=== PATIENT | male | born 1955 | race Caucasian/White ===

== ENCOUNTER → 2019-05-04 | Outpatient (CLI) | payer MEDICARE, OTHER ==
--- NOTE | 2019-05-04 07:33 | US ---
EXAMINATION TYPE: US duplex aorta DATE OF EXAM: 05/04/2019 COMPARISON: NONE CLINICAL HISTORY: Z13.6 Screening for AAA. EXAM MEASUREMENTS: Abdominal Aorta: Proximal: gassed out Mid: 2.2cm longitudinal Distal: 2.0cm Transverse Bifurcation: Right DENAE = 1.3cm Transverse; Left DENAE = 1.2cm Transverse Proximal aorta is gassed out. Ectatic appearance to aorta with intimal wall thickening noted througho ut aorta and into common iliac arteries. Atherosclerosis is seen throughout the aorta. IMPRESSION: Somewhat ectatic aorta in the mid and distal portions with atherosclerosis, however there is no evidence of aneurysmal dilatation in the visualized abdominal aorta.
== END | disposition home or self-care (01) ==
LOC: RADUSWWP 06:48
PROVIDERS: ATTEND Family Medicine
DX: Z13.6 Encounter for screening for cardiovascular disorders (principal); I77.811 Abdominal aortic ectasia; I70.0 Atherosclerosis of aorta
CPT/HCPCS: 93979

== ENCOUNTER 2020-05-23 10:17 | Day surgery (SDC) | payer MEDICARE, OTHER ==
[2020-05-21 11:52] VITALS: BMI 28.1
[~2020-05-23 10:17] MED LIST: LACTATED RINGERS 1,000 ML IV SCH
[2020-05-23 10:31] VITALS: RESP 18; TEMP 98.3
[2020-05-23] MEDS ORDERED: LACTATED RINGERS 1,000 ML IV ONE (10:31)
[2020-05-23] MEDS ORDERED: LIDOCAINE 1% (10MG/ML) FOR IV START INTRADERMA ONE (10:31)
[2020-05-23] MEDS ORDERED: PROPOFOL 10 MG/ML 20 ML VIAL IV ONE (11:25)
--- NOTE | 2020-05-23 11:38 | P.PCN ---
Date of Procedure: 05/23/20 Procedure(s) Performed: BRIEF HISTORY: Patient is a 65-year-old pleasant white male scheduled for an elective colonoscopy as a part of screening for colorectal neoplasia. His last colonoscopy was 10 years ago. PROCEDURE PERFORMED: Colonoscopy. PREOPERATIVE DIAGNOSIS: Screening for colon cancer. IV sedation per Anesthesia. PROCEDURE: After informed consent was obtained, the patient, was brought into the endoscopy unit. IV sedation was administered by Anesthesia under continuous monitoring. Digital rectal examination was normal. Initially the Olympus CF-160 flexible video colonoscope was then inserted in the rectum, gradually advanced into the cecum without any difficulty. Careful examination was performed as the scope was gradually being withdrawn. Ileocecal valve and the appendiceal orifice were visualized and appeared normal. Prep was excellent. Mucosa of the cecum, ascending colon, transverse colon, descending colon, sigmoid colon, and rectum appeared normal. Retroflexion was performed in the rectum and no lesions were seen. The patient tolerated the procedure well. IMPRESSION: Normal-appearing colon from rectum to cecum with no evidence of colorectal neoplasia . RECOMMENDATIONS: Findings of this examination were discussed with the patient as well as his family. He was advised to have a repeat screening colonoscopy in 10 years.
[2020-05-23 11:59] VITALS: BP 119/79; PULSE 61
== END 2020-05-23 12:30 | disposition home or self-care (01) ==
LOC: ORWHC2ENDO 10:17
PROVIDERS: ATTEND Internal Medicine Gastroenterology
DX: Z12.11 Encounter for screening for malignant neoplasm of colon (principal); E78.5 Hyperlipidemia, unspecified; N40.0 Benign prostatic hyperplasia without lower urinary tract symptoms; E07.9 Disorder of thyroid, unspecified; Z79.82 Long term (current) use of aspirin; Z79.890 Hormone replacement therapy; Z79.1 Long term (current) use of non-steroidal anti-inflammatories (NSAID); Z79.899 Other long term (current) drug therapy; Z90.49 Acquired absence of other specified parts of digestive tract; Z98.890 Other specified postprocedural states
CPT/HCPCS: J2704; G0121

== ENCOUNTER → 2021-06-12 | Outpatient (CLI) | payer MEDICARE, OTHER ==
--- NOTE | 2021-06-12 11:12 | US ---
EXAMINATION TYPE: US duplex aorta DATE OF EXAM: 06/12/2021 COMPARISON: 05/04/2019 CLINICAL HISTORY: 66-year-old male Z13.6 Encounter for screening for cardiovascular. TECHNIQUE: Multiple sonographic images of the abdominal aorta are obtained. FINDINGS: EXAM MEASUREMENTS: Abdominal Aorta: Proximal: 2.0 x 1.5 cm Mid: 1.6 x 1.6 cm. Distal: 1.4 x 1.3 cm. Bifurcation: Right common iliac artery 1.2 x 1.2 cm. Left common iliac artery 1.2 x 0.9 cm. Mild atherosclerotic irregularity is present in the mid to lower abdominal aorta. IMPRESSION: No sonographic evidence for abdominal aortic ectasia or aneurysm.
== END | disposition home or self-care (01) ==
LOC: RADUSWWP 07:01
PROVIDERS: ATTEND Family Medicine
DX: Z13.6 Encounter for screening for cardiovascular disorders (principal)
CPT/HCPCS: 93979

== ENCOUNTER 2021-12-19 10:15 | Day surgery (SDC) | payer MEDICARE, OTHER ==
[2021-12-17 11:59] VITALS: BMI 28.1
[~2021-12-19 10:15] MED LIST changes: +ACETAMINOPHEN TAB 500 MG TAB PO PRN; +HEPARIN SODIUM,PORCINE/PF 5,000 UNIT/0.5 ML SYRINGE SQ PRN; +HYDROmorphone 0.5 MG/0.5 ML SYRINGE IVP PRN; +LIDOCAINE 1% (10MG/ML) FOR IV START INTRADERMA PRN; +ONDANSETRON 4 MG/2 ML VIAL IVP ONE; +ONDANSETRON 4 MG/2 ML VIAL IVP PRN
--- NOTE | 2021-12-19 10:48 | P.GSHP ---
History of Present Illness H&P Date: 12/19/21 Chief Complaint: Recurrent right inguinal hernia 66-year-old male with history of numerous inguinal hernias in the past. He has had the right side repaired once as an and the left side repaired 4 separate times he believes. Here today for elective repair recurrent right inguinal hernia. Describes a painful bulge in that location. Past Medical History Past Medical History: Hyperlipidemia, Thyroid Disorder Additional Past Medical History / Comment(s): BPH History of Any Multi-Drug Resistant Organisms: None Reported Past Surgical History: Appendectomy, Hernia Repair, Orthopedic Surgery Additional Past Surgical History / Comment(s): RIGHT SHOULDER SURG., MULTIPLE RIGHT AND LEFT INGUINAL HERNIA REPAIRS Past Anesthesia/Blood Transfusion Reactions: No Reported Reaction Past Psychological History: No Psychological Hx Reported Smoking Status: Former smoker Past Alcohol Use History: Daily Additional Past Alcohol Use History / Comment(s): SMOKED APPROX 20 YRS, 1 PPD. DRINKS 1 GLASS WINE DAILY Past Drug Use History: None Reported - Past Family History Mother Family Medical History: Cancer Additional Family Medical History / Comment(s): BREAST Father Family Medical History: Cancer Additional Family Medical History / Comment(s): PROSTATE CANCER Brother(s) Family Medical History: Cancer Additional Family Medical History / Comment(s): THROAT & PROSTATE CANCER Medications and Allergies Home Medications Medication Instructions Recorded Confirmed Type Aspirin 325 mg PO HS 05/21/20 12/17/21 History Atorvastatin [Lipitor] 40 mg PO HS 05/21/20 12/17/21 History Bimatoprost [Lumigan .01% Ophth 1 drop BOTH EYES HS 05/21/20 12/17/21 History Soln] Levothyroxine Sodium 112 mcg PO DAILY 05/21/20 12/17/21 History Tamsulosin [Flomax] 0.4 mg PO PC-SUPPER 05/21/20 12/17/21 History Allergies Allergy/AdvReac Type Severity Reaction Status Date / Time No Known Allergies Allergy Verified 12/17/21 11:54 Surgical - Exam Vital Signs Temp Pulse Resp BP Pulse Ox 98.8 F 83 16 137/85 97 12/19/21 10:31 12/19/21 10:31 12/19/21 10:31 12/19/21 10:31 12/19/21 10:31 Physical exam: General: Well-developed, well-nourished HEENT: Normocephalic, sclerae nonicteric Abdomen: Nontender, nondistended Extremities: No edema Neuro: Alert and oriented Assessment and Plan (1) Recurrent right inguinal hernia Narrative/Plan: 66-year-old male with recurrent right inguinal hernia. We'll proceed with laparoscopic da Flaco assisted repair right inguinal recurrent hernia with mesh, possible open, possible bilateral. Risks of bleeding, infection, recurrence, bladder and bowel injury, numbness, nerve injury, conversion to an open procedure were discussed with the patient. The patient understands and wishes to proceed. Current Visit: Yes Status: Acute Code(s): K40.91 - UNILATERAL INGUINAL HERNIA, W/O OBST OR GANGRENE, RECURRENT SNOMED Code(s): 852747870
[2021-12-19 10:56] LABS: Glucose,Whole Blood 85 mg/dL (75-99)
[2021-12-19] MEDS ORDERED: ePHEDrine 50 MG/ML 1 ML VIAL ONE (12:57)
[2021-12-19] MEDS ORDERED: SUCCINYLCHOLINE CHLORIDE 100 MG/5 ML SYR IV ONE (12:57)
[2021-12-19] MEDS ORDERED: LIDOCAINE 2% INJ 20 MG/ML (2 ML VIAL) ONE (12:57)
[2021-12-19] MEDS ORDERED: ROCURONIUM 10 MG/ML (5 ML VIAL) IV ONE (12:57)
[2021-12-19] MEDS ORDERED: PROPOFOL 10 MG/ML 20 ML VIAL IV ONE (12:57)
[2021-12-19] MEDS ORDERED: HYDROmorphone (PF) 1 MG/ML ONE (12:57)
[2021-12-19] MEDS ORDERED: PHENYLEPHRINE-0.9% NACL SYG 1,000 MCG/10 ML SYRINGE ONE (12:57)
[2021-12-19] MEDS ORDERED: MIDAZOLAM 2 MG/2 ML VIAL ONE (12:57)
[2021-12-19] MEDS ORDERED: GLYCOPYRROLATE 0.2 MG/ML 2 ML VIAL ONE (12:57)
[2021-12-19] MEDS ORDERED: NEOSTIGMINE 1 MG/ML 10 ML VIAL ONE (12:57)
[2021-12-19] MEDS ORDERED: fentaNYL (PF) 50 MCG/ML 2 ML AMP ONE (12:57)
[2021-12-19] MEDS ORDERED: BUPIVACAINE (PF) 0.25% 30 ML VIAL SQ ONE (13:25)
[2021-12-19] MEDS ORDERED: LACTATED RINGERS 1,000 ML IV ONE ×3 (14:00→16:02)
--- NOTE | 2021-12-19 14:33 | P.OP ---
Date of Procedure: 12/19/21 Procedure(s) Performed: PREOPERATIVE DIAGNOSIS: Recurrent right inguinal hernia POSTOPERATIVE DIAGNOSIS: Same PROCEDURE: Repair laparoscopic da Flaco assisted recurrent right inguinal hernia with mesh SURGEON: Dr. Rodriguez ANESTHESIA: General OPERATIVE PROCEDURE DETAILS: Patient was placed in the operating table in the supine position. The patient was placed under general anesthesia. The abdomen was prepped and draped in usual sterile fashion. A small curvilinear supraumbilical incision was made. The fascia was retracted anteriorly with Gilbert forceps. The Veress needle was inserted. The saline drop test was normal. Insufflation took place to 15 mmHg. An 8 mm trocar was placed into the peritoneal cavity. 2 additional 8 mm trochars were placed in the right upper quadrant and left upper quadrant under visualization. The robotic arms were then brought in and docked into place. The fenestrated bipolar was used in the left arm and the laparoscopic sindy was utilized in the right arm. A 30 8 mm scope was used in the up position. The peritoneal cavity was inspected. The patient had adhesions in both right and left lower quadrant. There was a visible indirect hernia seen on the right-hand side. The patient had a preperitoneal mesh present bilaterally. Unclear whether this represented a Kugel patch or a prior laparoscopic repair. The mesh was lateral to the internal inguinal ring on the right hand side and therefore there was a hernia present. There was no evidence of recurrent hernia on the left-hand side. I could not visualize the entirety of the left inguinal region because of adhesions between the pericolonic fat and the inguinal region. The right side was then addressed. The peritoneum was incised in a horizontal fashion cephalad to the internal inguinal ring. Following that careful dissection of the preperitoneal space took place. This took place using both electrocautery, sharp dissection but primarily blunt dissection. I was able to sweep the preperitoneal mesh inferiorly and we were able to dissect deep to that mesh. No bleeding was seen. Visualization of the pubic tubercle and Kailash's ligament took place medially. Once we had adequate space the large Bard 3-D mid mesh was advanced into the preperitoneal space and flattened out appropriately to cover all potential hernia sites. I did suture the lower lateral aspect of the newly placed mesh to the folding edge of the mesh that had been swept inferiorly and posteriorly using a short running 3-0 Vicryl stitch. The peritoneal defect was then closed using a absorbable 2-0 VLok suture. The hernia sac was incorporated into the peritoneal closure to help prevent future recurrence. The pn eumoperitoneum was then evacuated. The skin of all 3 sites was closed using a 4-0 Monocryl stitch. Skin glue was then applied. TYPE OF MESH USED: Bard 3-D mid large 4 x 6" LOCATION OF MESH: Preperitoneal FIXATION: 3-0 Vicryl stitch to the old mesh PREOPERATIVE DISCUSSION ON SMOKING CESSASTION: Yes PREOPERATIVE DISCUSSION ON MORBID OBESITY: Yes PREOPERATIVE DISCUSSION ON APPROPRIATE USE OF NARCOTIC USE: Yes PREOPERATIVE EDUCATION: Multi Modal, Smoking Cessation and Weight Loss with BMI over 35. DISPOSITION: Stable to recovery room
[2021-12-19 14:53] VITALS: TEMP 97.4
[2021-12-19] MEDS ORDERED: TAMSULOSIN 0.4 MG CAP.ER.24H PO STA (15:32)
[2021-12-19 15:46] VITALS: RESP 18
[2021-12-19 16:18] VITALS: BP 129/83; PULSE 85
[2021-12-19] MEDS ORDERED: ACETAMINOPHEN TAB 325 MG TAB PO SCH (18:00)
[2021-12-19] MEDS ORDERED: IBUPROFEN 600 MG TAB PO SCH (21:00)
== END 2021-12-19 16:54 | disposition home or self-care (01) ==
LOC: OR 10:15
PROVIDERS: ATTEND Surgery
DX: K40.91 Unilateral inguinal hernia, without obstruction or gangrene, recurrent (principal); E78.5 Hyperlipidemia, unspecified; N40.0 Benign prostatic hyperplasia without lower urinary tract symptoms; Z87.891 Personal history of nicotine dependence; Z90.49 Acquired absence of other specified parts of digestive tract; Z80.42 Family history of malignant neoplasm of prostate
CPT/HCPCS: 49651; 86900; 86901; 86850; C1781; J2250; J2710; J0690; J2405; J3010; J1170; J2370; J0330; J2704; J1644; J2001